=== PATIENT | female | born 1980 | race Asian ===

== ENCOUNTER → 2019-04-11 | Outpatient (CLI) | payer MEDICAID ==
[2019-04-11 11:06] LABS: Basophils # (auto) 0 uL; Eosinophils # (auto) 0 uL; Eosinophils % (auto) 0.4 % (0.0-7.0); Lymphocytes # (auto) 1.8 uL; Monocytes # (auto) 0.7 uL; Nucleated Red Blood Cells % 0.1 %; Red Cell Distribution Width 18.3 % (11.8-14.3)
[2019-04-11 11:08] LABS: Basophils % (auto) 0.4 % (0.0-2.0); Hematocrit 34.8 % (36.0-46.0); Lymphocytes % (auto) 24.4 % (10.0-50.0); Mean Corpuscular Hemoglobin 24.7 pg (28.0-32.0); Mean Corpuscular Hgb Conc. 31.5 g/dL (32.0-36.0); Mean Corpuscular Volume 78.5 fL (80.0-100.0); Monocytes % (auto) 9.8 % (0.0-12.0); Neutrophils # (auto) 4.7 uL; Platelet Count (auto) 341 10^3/uL (140-450); Red Blood Cells 4.43 10^6/uL (4.0-5.20); White Blood Cell 7.2 10^3/uL (4.4-10.8)
[2019-04-11 13:12] LABS: RUBELLA Negative
[2019-04-11 13:20] LABS: Alcohol, Urine < 3.0 mg/dL (0-5); Amphetamine Screen, Urine NEGATIVE (NEGATIVE); Barbiturate Scree,Urine NEGATIVE (NEGATIVE); Benzodiazephine Screen, Urine NEGATIVE (NEGATIVE); Cannabinoid Screen, Urine NEGATIVE (NEGATIVE); Cocaine Screen, Urine NEGATIVE (NEGATIVE); Opiate Scree,Urine NEGATIVE (NEGATIVE); Phencyclidine Screen, Urine NEGATIVE (NEGATIVE)
[2019-04-12 06:06] LABS: RPR Non Reactive (Non Reactive)
== END | disposition home or self-care (01) ==
LOC: LAB 10:21
PROVIDERS: ATTEND Obstetrics & Gynecology
DX: O99.810 Abnormal glucose complicating pregnancy (principal); Z3A.29 29 weeks gestation of pregnancy
CPT/HCPCS: 36415; 80307; 82951; 84112; 84144; 84702; 85025; 86592; 86703; 86762; 86850; 86900; 86901; 87086; 87340

== ENCOUNTER 2019-06-09 18:05 | Observation (INO) | payer MEDICAID ==
[~2019-06-09] VITALS: Ht 162.6 cm; Wt 78.9 kg
[2019-06-09] MEDS ORDERED: LABETALOL HCL 200 MG TAB PO ONE ×2 (19:15→21:30)
[2019-06-09] MEDS ORDERED: hydrALAZINE HCL 20 MG/ML VL IV ONE (19:15)
[2019-06-09] MEDS ORDERED: hydrALAZINE HCL 20 MG/ML VL IV PRN (19:45)
[2019-06-09 19:51] LABS: INR < 0.93 (0.9-1.15)
[2019-06-09 19:57] LABS: BUN/Creatinine Ratio 21.4; Bilirubin, Total 0.4 mg/dL (0.2-1.0); Total Protein 6.1 g/dL (6.4-8.2); Uric Acid 4.2 mg/dL (2.6-6.0)
[2019-06-09 20:11] LABS: Basophils # (auto) 0 uL; Basophils % (auto) 0.3 % (0.0-2.0); Eosinophils # (auto) 0 uL; Eosinophils % (auto) 0.3 % (0.0-7.0); Mean Corpuscular Volume 77.2 fL (80.0-100.0); Monocytes # (auto) 0.9 uL; Nucleated Red Blood Cells % 0.1 %
[2019-06-09 20:13] LABS: Hemoglobin 9.8 g/dL (12.2-16.2); Lymphocytes # (auto) 1.9 uL; Lymphocytes % (auto) 23.5 % (10.0-50.0); Mean Corpuscular Hemoglobin 24.4 pg (28.0-32.0); Mean Corpuscular Hgb Conc. 31.7 g/dL (32.0-36.0); Monocytes % (auto) 10.8 % (0.0-12.0); Neutrophils # (auto) 5.4 uL; Neutrophils % (auto) 65.1 % (37.0-80.0); Platelet Count (auto) 215 10^3/uL (140-450); Red Blood Cells 4.01 10^6/uL (4.0-5.20); Red Cell Distribution Width 17.8 % (11.8-14.3); White Blood Cell 8.2 10^3/uL (4.4-10.8)
[2019-06-09 22:24] LABS: Amphetamine Screen, Urine NEGATIVE (NEGATIVE); Barbiturate Scree,Urine NEGATIVE (NEGATIVE); Benzodiazephine Screen, Urine NEGATIVE (NEGATIVE); Cannabinoid Screen, Urine NEGATIVE (NEGATIVE); Cocaine Screen, Urine NEGATIVE (NEGATIVE); Opiate Scree,Urine NEGATIVE (NEGATIVE); Phencyclidine Screen, Urine NEGATIVE (NEGATIVE)
[2019-06-09] MEDS ORDERED: TERBUTALINE SULFATE 1 MG/ML 1ML VIAL SC SCH (22:30)
[2019-06-09] MEDS ORDERED: TERBUTALINE SULFATE 1 MG/ML 1ML VIAL SC ONE (22:33)
[2019-06-09 22:46] LABS: Urine Bacteria FEW /hpf (None Seen); Urine Blood Negative /uL (Negative); Urine Hyaline Cast FEW /lpf (0 - 2); Urine Mucus FEW (None Seen); Urine Specific Gravity 1.012 (1.001-1.035); Urine WBC 4 /hpf (0 - 5)
== END 2019-06-09 23:30 | disposition home or self-care (01) | DRG 566 ==
LOC: LDRP 18:05
PROVIDERS: ADMIT Specialist; ATTEND Specialist
DX: O13.3 Gestational [pregnancy-induced] hypertension without significant proteinuria, third trimester (principal); Z3A.36 36 weeks gestation of pregnancy
CPT/HCPCS: 36415; 59025; 76818; 80053; 80307; 81001; 84550; 85025; 85362; 85379; 85610; 85730; 96372; 96374; 96376; G0378; J0360; J3105; 96375

== ENCOUNTER 2019-06-11 09:40 | Observation (INO) | payer MEDICAID ==
[2019-06-11] MEDS ORDERED: PREN-153 OR (10:18)
[2019-06-11] MEDS ORDERED: LABE100T4 PO (10:18)
== END 2019-06-11 12:40 | disposition home or self-care (01) | DRG 566 ==
LOC: LDRP 09:40
PROVIDERS: ADMIT Obstetrics & Gynecology; ATTEND Obstetrics & Gynecology
DX: O13.3 Gestational [pregnancy-induced] hypertension without significant proteinuria, third trimester (principal); O09.523 Supervision of elderly multigravida, third trimester; Z3A.37 37 weeks gestation of pregnancy
CPT/HCPCS: 59025; 76818; 81002; A4618; G0378

== ENCOUNTER 2019-06-11 19:04 | Inpatient (IN) | payer MEDICAID ==
[~2019-06-11] VITALS: Ht 149.9 cm; Wt 81.2 kg
[~2019-06-11 19:04] MED LIST: LABE100T4 PO; PREN-153 OR
[2019-06-11] MEDS ORDERED: LACTATED RINGER'S 1,000 ML IV SCH (19:55)
[2019-06-11] MEDS ORDERED: BETAMETHASONE ACET (6MG/ML) 5ML VIAL IM ONE (20:00)
[2019-06-11] MEDS ORDERED: hydrALAZINE HCL 20 MG/ML VL ONE (20:03)
[2019-06-11] MEDS ORDERED: BETAMETHASONE ACET (6MG/ML) 5ML VIAL ONE (20:05)
[2019-06-11 20:29] LABS: Urine Bacteria FEW /hpf (None Seen); Urine Blood TRACE /uL (Negative); Urine Mucus FEW (None Seen); Urine Specific Gravity 1.029 (1.001-1.035); Urine WBC 26 /hpf (0 - 5)
[2019-06-11] MEDS: hydrALAZINE HCL 20 MG/ML VL IV PRN ×2 (20:32→21:30)
[2019-06-11 20:34] LABS: Basophils # (auto) 0 uL; Basophils % (auto) 0.4 % (0.0-2.0); Eosinophils # (auto) 0 uL; Eosinophils % (auto) 0.4 % (0.0-7.0); Hemoglobin 10.5 g/dL (12.2-16.2); Monocytes # (auto) 1.1 uL; Nucleated Red Blood Cells % 0.3 %; Platelet Count (auto) 170 10^3/uL (140-450)
[2019-06-11 20:36] LABS: Hematocrit 33.1 % (36.0-46.0); Lymphocytes % (auto) 19.9 % (10.0-50.0); Mean Corpuscular Hemoglobin 24.6 pg (28.0-32.0); Mean Corpuscular Hgb Conc. 31.8 g/dL (32.0-36.0); Mean Corpuscular Volume 77.5 fL (80.0-100.0); Monocytes % (auto) 10.6 % (0.0-12.0); Neutrophils % (auto) 68.7 % (37.0-80.0); Red Blood Cells 4.27 10^6/uL (4.0-5.20); White Blood Cell 10.2 10^3/uL (4.4-10.8)
[2019-06-11 20:46] LABS: INR < 0.93 (0.9-1.15); Partial Thromboplastin Time 26.1 sec (23.64-32.05)
[2019-06-11 20:59] LABS: Alcohol, Urine < 3.0 mg/dL (0-5); Amphetamine Screen, Urine NEGATIVE (NEGATIVE); Barbiturate Scree,Urine NEGATIVE (NEGATIVE); Benzodiazephine Screen, Urine NEGATIVE (NEGATIVE); Cannabinoid Screen, Urine NEGATIVE (NEGATIVE); Cocaine Screen, Urine NEGATIVE (NEGATIVE); Opiate Scree,Urine NEGATIVE (NEGATIVE); Phencyclidine Screen, Urine NEGATIVE (NEGATIVE)
[2019-06-11 21:00] LABS: Albumin 2.1 g/dL (3.4-5.0); Calcium 7.9 mg/dL (8.5-10.1); Potassium 4.3 mmol/L (3.5-5.1)
[2019-06-11] MEDS ORDERED: LABETALOL HCL 200 MG TAB PO ONE (21:00)
[2019-06-11 21:02] LABS: BUN/Creatinine Ratio 17.3; Bilirubin, Total 0.4 mg/dL (0.2-1.0); Total Protein 6.7 g/dL (6.4-8.2)
[2019-06-12] VITALS (11 sets, daily range): BP systolic 117–134; BP diastolic 49–76
[2019-06-12] MEDS ORDERED: OXYTOCIN 10 UNIT/ML 10ML VIAL IV ONE (00:51)
[2019-06-12] MEDS ORDERED: fentaNYL CITRATE 100 MCG/2 ML VL ONE (00:51)
[2019-06-12] MEDS ORDERED: ceFAZolin 1GM VL IV ONE (00:51)
[2019-06-12] MEDS ORDERED: SUCCINYLCHOLINE CHLORIDE 20 MG/ML 10ML VIAL IV ONE (00:58)
[2019-06-12] MEDS: LACT. RINGERS/OXYTOCIN 20UNITS 1,000 ML IV SCH ×2 (01:05→07:45)
[2019-06-12] MEDS ORDERED: ONDANSETRON HCL 4 MG/2 ML VIAL IV PRN ×2 (01:15→03:00)
[2019-06-12] MEDS ORDERED: ceFAZolin 1GM/50ML 50 ML IV SCH (02:00)
--- NOTE | 2019-06-12 02:30 | NUR ---
Pain medication order Dr. Guaman on unit. Order received for Ofirmev 1000mg IV BID prn moderate pain. Pt is not to receive Toradol per Dr. Guaman.
[2019-06-12] MEDS ORDERED: ePHEDrine SULFATE 50 MG/ML AMP IV PRN (03:00)
[2019-06-12] MEDS ORDERED: hydrALAZINE HCL 20 MG/ML VL IV PRN (03:00)
[2019-06-12] MEDS ORDERED: HYDROmorphone HCL 2 MG/ML VL IV PRN ×2 (03:00)
[2019-06-12] MEDS ORDERED: OFIRMEV IV PRN (03:15)
--- NOTE | 2019-06-12 03:19 | NUR ---
0240 Pt. arrived from PACU via hospital bed.
--- NOTE | 2019-06-12 03:22 | NUR ---
0300 VSS, fundus firm, small lochia, pt. alert and oriented. Oriented to room; call chawla, plan of care discussed with pt., pt. verbalized understanding per Maksim, hospital secretary as warm in.
[2019-06-12] MEDS: MORPHINE SULFATE 4 MG/ML SYR/VIAL IV PRN ×4 (04:11→20:45)
[2019-06-12] MEDS ORDERED: ACETAMINOPHEN IV 1000 MG/100ML (10MG/ML) IV ONE ×2 (05:15→12:00)
[2019-06-12] MEDS: ceFAZolin 1GM/50ML 50 ML IV SCH ×2 (09:38→17:31)
--- NOTE | 2019-06-12 10:11 | NUR ---
DR. RUIZ CALLED AND UPDATE GIVEN . NEW ORDERS RECEIVED PATIENT CAN GET UP AND WALK AFTER 7 PM .
[2019-06-12 14:05] LABS: Basophils # (auto) 0 uL; Eosinophils # (auto) 0 uL
[2019-06-12 14:07] LABS: Basophils % (auto) 0.2 % (0.0-2.0); Hematocrit 29.2 % (36.0-46.0); Lymphocytes # (auto) 1.3 uL; Lymphocytes % (auto) 11.3 % (10.0-50.0); Mean Corpuscular Hemoglobin 24.3 pg (28.0-32.0); Mean Corpuscular Volume 78.3 fL (80.0-100.0); Monocytes # (auto) 0.7 uL; Monocytes % (auto) 5.6 % (0.0-12.0); Neutrophils # (auto) 9.7 uL; Neutrophils % (auto) 82.9 % (37.0-80.0); Nucleated Red Blood Cells % 0.2 %; Platelet Count (auto) 160 10^3/uL (140-450); Red Blood Cells 3.72 10^6/uL (4.0-5.20); Red Cell Distribution Width 17.7 % (11.8-14.3); White Blood Cell 11.7 10^3/uL (4.4-10.8)
[2019-06-12] MEDS ORDERED: LACTATED RINGER'S 1,000 ML IV ONE (17:30)
[2019-06-12] MEDS ORDERED: BISACODYL 10 MG RECT SUPP PR PRN (22:30)
[2019-06-13] MEDS: IBUPROFEN 800 MG TAB PO PRN ×2 (00:12→22:08)
--- NOTE | 2019-06-13 01:00 | NUR ---
Horn catheter dc'd Order to discontinue horn catheter. Horn dc'd with clean technique following deflation of balloon. Patient tolerated well with no complaints of pain. Continue care.
--- NOTE | 2019-06-13 01:45 | NUR ---
Ambulation: Berta care provided, and fresh gown. Patient OOB with standby assistance by RN. Pt ambulated in hallway 200 fett , with complaints of pain. Pt transferred to room 3 from room 8A related to crying baby in bed next door and her has been transferred to [facility] for continued care.
[2019-06-13] MEDS: HYDROcodone-ACET 5/325MG TAB PO PRN ×4 (01:51→19:23)
[2019-06-13] MEDS: ceFAZolin 1GM/50ML 50 ML IV SCH (01:52)
--- NOTE | 2019-06-13 02:00 | NUR ---
IV removal Righ hand, IV DC'd with sterile technique, catheter fully intact. Pressure dressing applied to site. Patient tolerated procedure well.
[2019-06-13 03:15] VITALS: BP 127/63
[2019-06-13] MEDS: SIMETHICONE 80 MG CHEWABLE TABLET PO SCH ×4 (05:43→22:07)
[2019-06-13 06:31] LABS: Basophils # (auto) 0 uL; Basophils % (auto) 0.2 % (0.0-2.0); Eosinophils # (auto) 0 uL; Hematocrit 26.3 % (36.0-46.0); Hemoglobin 8.3 g/dL (12.2-16.2); Lymphocytes # (auto) 1.4 uL; Lymphocytes % (auto) 11.3 % (10.0-50.0); Mean Corpuscular Hemoglobin 24.8 pg (28.0-32.0); Mean Corpuscular Hgb Conc. 31.5 g/dL (32.0-36.0); Mean Corpuscular Volume 78.6 fL (80.0-100.0); Neutrophils # (auto) 9.7 uL; Neutrophils % (auto) 80.5 % (37.0-80.0); Nucleated Red Blood Cells % 0.1 %; Platelet Count (auto) 179 10^3/uL (140-450); Red Blood Cells 3.35 10^6/uL (4.0-5.20)
[2019-06-13 07:00] VITALS: BP 133/65
[2019-06-13] MEDS: DOCUSATE SOD 100 MG CAP PO SCH ×2 (10:00→22:07)
[2019-06-13 11:10] VITALS: BP 136/63
[2019-06-13 15:00] VITALS: BP 143/67
--- NOTE | 2019-06-13 18:54 | NUR ---
With assistance of oceanographic meteorologist [id number] Rosy, Reviewed plan of care and goals for this shift. Patient verbalized understanding and agreed to cares by both this RN luba uStton Cubing Machine Tender Student RN. Assessment initiated . See flowsheet for complete data.
[2019-06-13 19:00] VITALS: BP 120/57
--- NOTE | 2019-06-13 20:00 | NUR ---
Pt states pain 2/10, out of bed and ambulating throughout unit, approx 600 feet independent, all belongings moved to room 8 and pt transferred. tolerated walking well, per patient
--- NOTE | 2019-06-13 21:00 | NUR ---
All supplies for shower provided. Pt independent, red call light cord within reach.
[2019-06-13 23:09] VITALS: BP 136/76
--- NOTE | 2019-06-13 23:30 | NUR ---
Out of bed ambulating throughout unit, 600 feet, tolerated well.
[2019-06-14] MEDS: HYDROcodone-ACET 5/325MG TAB PO PRN (03:08)
[2019-06-14 03:16] VITALS: BP 130/77
--- NOTE | 2019-06-14 05:35 | NUR ---
CNM V. at bedside, removing xiomy. Pt tolerated well. Pt denies pain.
[2019-06-14] MEDS: SIMETHICONE 80 MG CHEWABLE TABLET PO SCH (05:55)
[2019-06-14 07:00] VITALS: BP 140/70
[2019-06-14 07:11] LABS: RPR Non Reactive (Non Reactive)
[2019-06-14] MEDS ORDERED: TETANUS-DIPTH-ACEL PERTUSSIS 0.5ML SYRG IM ONE (09:15)
--- NOTE | 2019-06-14 09:15 | NUR ---
Discharge: Discharge instructions given as ordered. Pt encouraged to follow up with RANGE TECHNICIAN as instructed. All questions and concerns addressed. Patient verbalized understanding. Medication reconciliation completed and copy given to patient. All required/requested vaccines given and copies of vaccinations given to patient. Patient encouraged to prepare to depart unit.
== END 2019-06-14 09:33 | disposition home or self-care (01) | DRG 540 ==
LOC: LDRP 19:04 → OBSVTOIN 06-12 00:05 → NUR 06-12 07:05 → LDRP 06-12 07:07
PROVIDERS: ADMIT Obstetrics & Gynecology; ATTEND Obstetrics & Gynecology
PROC: 10D00Z1 Extraction of Products of Conception, Low, Open Approach (ICD-10-PCS; principal; 2019-06-12 01:05)
DX: O36.5930 Maternal care for other known or suspected poor fetal growth, third trimester, not applicable or unspecified (principal); E66.9 Obesity, unspecified; O99.214 Obesity complicating childbirth; O34.211 Maternal care for low transverse scar from previous cesarean delivery; O76 Abnormality in fetal heart rate and rhythm complicating labor and delivery; Z37.0 Single live birth; Z3A.37 37 weeks gestation of pregnancy
CPT/HCPCS: 36415; 59025; 76801; 76818; 80053; 80307; 81001; 81002; 84112; 84550; 85025; 85610; 85730; 86592; 86850; 86900; 86901; 90715; 96365; 96366; 96372; 96374; 96375; A4618; G0378; J0131; J0330; J0690; J2590

== ENCOUNTER 2019-07-30 10:08 | Inpatient (IN) | payer MEDICAID ==
[~2019-07-30] VITALS: Ht 149.9 cm; Wt 68.0 kg
[2019-07-30 11:27] LABS: Eosinophils # (auto) 0.2 uL; Eosinophils % (auto) 2.6 % (0.0-7.0); Hemoglobin 11.7 g/dL (12.2-16.2); Lymphocytes # (auto) 0.9 uL; Lymphocytes % (auto) 11.5 % (10.0-50.0); Neutrophils # (auto) 6.4 uL; Red Blood Cells 4.49 10^6/uL (4.0-5.20); White Blood Cell 8.2 10^3/uL (4.4-10.8)
[2019-07-30 11:29] LABS: Basophils # (auto) 0 uL; Basophils % (auto) 0.6 % (0.0-2.0); Hematocrit 35.9 % (36.0-46.0); Mean Corpuscular Hemoglobin 26.2 pg (28.0-32.0); Mean Corpuscular Hgb Conc. 32.7 g/dL (32.0-36.0); Monocytes # (auto) 0.6 uL; Monocytes % (auto) 7.1 % (0.0-12.0); Neutrophils % (auto) 78.2 % (37.0-80.0); Platelet Count (auto) 517 10^3/uL (140-450)
[2019-07-30 11:33] LABS: Red Cell Distribution Width 23.2 % (11.8-14.3)
[2019-07-30 11:51] LABS: Albumin 3.5 g/dL (3.4-5.0); Anion Gap 6 (5-15); Blood Urea Nitrogen 10 mg/dL (7-18); Calcium 8.2 mg/dL (8.5-10.1); Carbon Dioxide 25 mmol/L (21-32); Chloride 108 mmol/L (98-107); Glucose 94 mg/dL (74-106); Potassium 3.6 mmol/L (3.5-5.1); Sodium 139 mmol/L (136-145)
[2019-07-30 11:58] LABS: Alanine Aminotransferase 149 U/L (13-56); Alkaline Phosphatase 129 U/L (45-117); Aspartate Aminotransferase 97 U/L (15-37); BUN/Creatinine Ratio 17.2; Bilirubin, Total 0.2 mg/dL (0.2-1.0); GFR African American 149 mL/min; GFR Non-African American 123 mL/min; Total Protein 7.8 g/dL (6.4-8.2)
[2019-07-30 12:20] LABS: INR 2.86 (0.9-1.15); Partial Thromboplastin Time 35.3 sec (23.64-32.05)
[2019-07-30] MEDS ORDERED: diphenhdrAMINE HCL 50 MG/1 ML VL IV ONE (12:30)
[2019-07-30] MEDS ORDERED: methylPREDNISolone SOD SUCC 125 MG/2 ML VL IV ONE (13:30)
[2019-07-30] MEDS ORDERED: FAMOTIDINE (10MG/ML) 2ML VL IV ONE (13:30)
[2019-07-30] MEDS ORDERED: ALBUTEROL SULF 2.5 MG/0.5ML(0.5%) NEB SOLN NEB PRN (13:45)
[2019-07-30] MEDS ORDERED: PROMETHAZINE HCL 25 MG/ML 1ML IV PRN (13:45)
[2019-07-30] MEDS ORDERED: MORPHINE SULF INJ 2 MG/ML SYRINGE 1ML IV PRN (13:45)
[2019-07-30] MEDS ORDERED: ACETAMINOPHEN 500 MG TAB PO PRN (13:45)
[2019-07-30] MEDS ORDERED: LABETALOL HCL 5 MG/ML ML 20ML VIAL IV PRN (13:45)
[2019-07-30] MEDS ORDERED: LACTULOSE 20Gm/30ML SOLN PO PRN (13:45)
[2019-07-30] MEDS ORDERED: NITROGLYCERIN 0.4 MG SL TAB SL PRN (13:45)
[2019-07-30] MEDS ORDERED: traMADol HCL 50 MG TAB PO PRN (13:45)
[2019-07-30 14:18] VITALS: BP 120/79
[2019-07-30] MEDS ORDERED: methylPREDNISolone SOD SUCC 40 MG/ML VL IV SCH (14:45)
--- NOTE | 2019-07-30 15:00 | NUR ---
Telemetry admit from ER KATYA CISNEROSHENRIK admitted to Telemetry unit after SBAR received. Patient oriented to Sigrid Kaplan, primary RN, unit, room, bed, and unit policies regarding patient care and visiting hours. Patient now on continuous telemetry monitoring, tele box # 32 and telemetry reading on arrival to unit is SR 91. Patient placed on bedside oxygen, weighed by bedscale and encouraged to call if they need something. All questions and concerns addressed, patient verbalized understanding. Note:
[2019-07-30 15:16] LABS: Urine Bacteria NONE SEEN /hpf (None Seen); Urine Blood 3+ /uL (Negative); Urine WBC 89 /hpf (0 - 5)
[2019-07-30 15:35] LABS: Alcohol, Urine < 3.0 mg/dL (0-5); Amphetamine Screen, Urine NEGATIVE (NEGATIVE); Barbiturate Scree,Urine NEGATIVE (NEGATIVE); Benzodiazephine Screen, Urine NEGATIVE (NEGATIVE); Cannabinoid Screen, Urine NEGATIVE (NEGATIVE); Cocaine Screen, Urine NEGATIVE (NEGATIVE); Opiate Scree,Urine NEGATIVE (NEGATIVE); Phencyclidine Screen, Urine NEGATIVE (NEGATIVE)
[2019-07-30] MEDS ORDERED: PANT40T PO (15:44)
[2019-07-30] MEDS ORDERED: WARF4TAB33 PO (15:44)
[2019-07-30] MEDS ORDERED: DIC10C PO (15:51)
[2019-07-30] MEDS ORDERED: AML5T PO (15:51)
[2019-07-30] MEDS ORDERED: PHE100C PO (15:51)
[2019-07-30] MEDS ORDERED: KEP500T PO (15:51)
[2019-07-30] MEDS ORDERED: PRED-188 PO (15:51)
[2019-07-30] MEDS ORDERED: cefTRIAXone 1GM/50ML D5W 50 ML IV ONE (16:00)
[2019-07-30] MEDS: SODIUM CHLORIDE 0.9% 1,000 ML IV SCH (16:00)
[2019-07-30] MEDS ORDERED: POM OP (16:17)
[2019-07-30 16:24] VITALS: BP 112/82
--- NOTE | 2019-07-30 16:30 | NUR ---
MED REC UPDATED PT'S SISTER AT BEDSIDE WITH BOTTLES OF HOME MEDICATIONS.
--- NOTE | 2019-07-30 18:34 | NUR ---
PER DR MONTAGUE, FAMILY WILL BRING PT'S PAPERWORK FROM PREVIOUS HOSP[facility] ADMISSION [facility] TO CONFIRM THE NAME THAT WAS USED IN THAT ADMISSION IN ORDER TO FIND HER PREVIOUS FILES AND TO BE ABLE TO REQUEST THE ONES FROM [facility].
--- NOTE | 2019-07-30 19:07 | NUR ---
RT NOTE PT WAS SEEN BY RT FOR PRN HHN ASSESSMENT. PT IS SITTING IN BED, EATING EVENING MEAL AND TALKING ON THE PHONE. NO SOB OR DISTRESS NOTED. HR 89, RR 16, BS CTA, POX 97% ON ROOM AIR. PT AWARE TO CALL IF PRN HHN TX NEEDED AT ANY TIME. NO PRN TX INDICATED NOR GIVEN AT THIS TIME. CONT ORDERED Addendum: 07/30/19 at 1954 by Blaire Honeycutt RT Amended: Links added.
[2019-07-30 22:00] VITALS: BP 101/68
[2019-07-30] MEDS ORDERED: ATORVASTATIN 20 MG TAB PO SCH (22:00)
[2019-07-30] MEDS ORDERED: LEVETIRACETAM 500 MG TAB PO SCH (22:00)
[2019-07-30] MEDS ORDERED: PHENYTOIN SODIUM 100 MG CAP PO SCH (22:00)
[2019-07-30] MEDS: LEVETIRACETAM 500 MG TAB PO SCH (23:28)
[2019-07-30] MEDS: methylPREDNISolone SOD SUCC 40 MG/ML VL IV SCH (23:28)
[2019-07-30] MEDS: LABETALOL HCL 200 MG TAB PO SCH (23:30)
[2019-07-31 05:00] VITALS: BP 107/68
[2019-07-31] MEDS: SODIUM CHLORIDE 0.9% 1,000 ML IV SCH (06:12)
[2019-07-31 07:10] LABS: INR 3.76 (0.9-1.15)
[2019-07-31 07:15] LABS: Cholesterol 203 mg/dL (< 200); HDL Cholesterol 50 mg/dL (40-59); LDL Cholesterol 140 mg/dL (< 100); Triglycerides 122 mg/dL (< 150)
--- NOTE | 2019-07-31 07:30 | NUR ---
Opening shift note. Assumed care of patient from mine shifter nurse. patient is alert and oriented x4, no signs of distress noted. Patient is updated on the plan of care and verbalized understanding. bed in the lowest position, side rails up x2 and call light is in reach. Encouraged patient to call for assistance.
[2019-07-31] MEDS: cefTRIAXone 1GM/50ML D5W 50 ML IV SCH (08:42)
[2019-07-31 09:00] VITALS: BP 105/69
[2019-07-31] MEDS: PANTOPRAZOLE 40 MG TAB PO SCH (09:53)
[2019-07-31] MEDS: LEVETIRACETAM 500 MG TAB PO SCH ×2 (09:54→22:23)
[2019-07-31] MEDS: LABETALOL HCL 200 MG TAB PO SCH ×2 (09:55→22:23)
[2019-07-31] MEDS: methylPREDNISolone SOD SUCC 40 MG/ML VL IV SCH ×2 (09:55→23:51)
[2019-07-31] MEDS ORDERED: ASPirin 81 mg TAB PO SCH (10:00)
[2019-07-31] MEDS ORDERED: amLODIPine BESYLATE 5 MG TAB PO SCH (10:00)
--- NOTE | 2019-07-31 12:02 | NUR ---
RT note: No signs of SOB/resp.distress noted at this time. B/S clear bilateral. Sats on room hyy=168, HR=79, RR=16. Instructed PT if SOB occurs to notify RN. PT understood instructions.
[2019-07-31 13:00] VITALS: BP 103/76
[2019-07-31] MEDS ORDERED: diphenhdrAMINE HCL 50 MG/1 ML VL IV PRN (13:45)
[2019-07-31] MEDS: ERYTHROMY OPTH OINT 5mg/gm 1gm OP SCH ×2 (16:02→21:45)
[2019-07-31 17:00] VITALS: BP 113/73
[2019-07-31] MEDS ORDERED: KETOROLAC TROMETH 30 MG/ML 1ML VIAL IV ONE (17:45)
--- NOTE | 2019-07-31 19:20 | NUR ---
Respiratory note: PT ASSESSED FOR PRN MED NEB TX. HR 81, RR 16, SPO2 98% ON R/A. NO SIGNS OF ANY RESPIRATORY DISTRESS NOTED. ADVISED PT TO CALL IF TX IS NEEDED. RT NAME AND PAGER NUMBER WRITTEN ON BOARD.
--- NOTE | 2019-07-31 19:25 | NUR ---
Closing shift notes Care endorsed to manufacturing shift supervisor nurse
--- NOTE | 2019-07-31 19:50 | NUR ---
Opening Shift Note Assumed care of patient, awake, AAOX4. Tamazight speaking only. No S/S of distress/SOB or pain. On room air and ambulatory. Seizure precautions in place. Bed in lowest locked position, side rails up x2, call light within reach. Instructed on POC and to call for assist PRN, will continue to monitor for changes Q1hr and PRN.
[2019-07-31 22:00] VITALS: BP 106/67
[2019-07-31] MEDS: PHENYTOIN SODIUM 100 MG CAP PO SCH (22:22)
--- NOTE | 2019-07-31 23:30 | NUR ---
IV removal IV infiltrated, redness and swelling at site. DC'd with clean sterile technique, catheter fully intact. Pressure dressing applied to site. Patient tolerated well.
--- NOTE | 2019-07-31 23:40 | NUR ---
IV insertion IV access obtained, via clean sterile technique by inserting 22 gauge catheter at right wrist after 2 attempts. IV secured properly. No trauma to site. Patient tolerated well.
[2019-08-01 05:00] VITALS: BP 101/65
[2019-08-01] MEDS: ERYTHROMY OPTH OINT 5mg/gm 1gm OP SCH ×2 (06:11→14:26)
[2019-08-01 06:43] LABS: Basophils # (auto) 0 uL; Eosinophils # (auto) 0 uL; Hematocrit 32.7 % (36.0-46.0); Hemoglobin 10.9 g/dL (12.2-16.2); Monocytes # (auto) 0.4 uL
[2019-08-01 06:48] LABS: Basophils % (auto) 0.8 % (0.0-2.0); Eosinophils % (auto) 0.8 % (0.0-7.0); Lymphocytes # (auto) 1.1 uL; Lymphocytes % (auto) 20.6 % (10.0-50.0); Mean Corpuscular Hemoglobin 26.4 pg (28.0-32.0); Mean Corpuscular Hgb Conc. 33.3 g/dL (32.0-36.0); Mean Corpuscular Volume 79.2 fL (80.0-100.0); Monocytes % (auto) 7.7 % (0.0-12.0); Neutrophils # (auto) 3.8 uL; Neutrophils % (auto) 70.1 % (37.0-80.0); Platelet Count (auto) 454 10^3/uL (140-450); Red Blood Cells 4.13 10^6/uL (4.0-5.20); White Blood Cell 5.4 10^3/uL (4.4-10.8)
[2019-08-01 07:00] LABS: Albumin 3.3 g/dL (3.4-5.0); Calcium 8.3 mg/dL (8.5-10.1); Potassium 4.2 mmol/L (3.5-5.1)
--- NOTE | 2019-08-01 07:00 | NUR ---
opening note PATIENT IN BED, ALERT AND ORIENTED, ABLE TO COMMUNICATE UPPER SORBIAN SPEAKING. UNLABORED EVEN RESPIRATIONS, NO SIGNS OF SOB. DENIES PAIN. INSTRUCTIONS GIVEN IN POC, PATIENT VERBALIZED UNDERSTANDING. BED IN LOWEST POSITION FOR SAFETY. CALL LIGHT WITH IN REACH. PT INSTRUCTED TO CALL FOR ASSISTANCE NEEDED. WILL CONT TO MONITOR
[2019-08-01 07:02] LABS: INR 2.28 (0.9-1.15)
[2019-08-01 07:03] LABS: BUN/Creatinine Ratio 23.3; Bilirubin, Total 0.2 mg/dL (0.2-1.0); Total Protein 7.4 g/dL (6.4-8.2)
[2019-08-01 09:00] VITALS: BP 101/63
[2019-08-01] MEDS: cefTRIAXone 1GM/50ML D5W 50 ML IV SCH (09:30)
[2019-08-01] MEDS: methylPREDNISolone SOD SUCC 40 MG/ML VL IV SCH (09:33)
[2019-08-01] MEDS: PHENYTOIN SODIUM 100 MG CAP PO SCH (09:34)
[2019-08-01] MEDS: PANTOPRAZOLE 40 MG TAB PO SCH (09:34)
[2019-08-01] MEDS: LEVETIRACETAM 500 MG TAB PO SCH (09:35)
[2019-08-01] MEDS: LABETALOL HCL 200 MG TAB PO SCH (09:38)
[2019-08-01] MEDS ORDERED: amLODIPine BESYLATE 5 MG TAB PO SCH (10:00)
--- NOTE | 2019-08-01 10:00 | NUR ---
PATIENT COMPLAINED OF CONSTIPATION. LACTULOSE GIVEN. INSTRUCTED PATIENT TO CALL FOR ASSISTANCE NEEDED.
--- NOTE | 2019-08-01 11:04 | NUR ---
Respiratory note: PT ASSESSED FOR PRN MED NEB TX. PT AWAKE, ALERT AND RESPONSIVE. HR 72, RR 18, SPO2 93% ON R/A. NO SIGNS OF ANY RESPIRATORY DISTRESS NOTED. ADVISED PT TO CALL IF TX IS NEEDED.
--- NOTE | 2019-08-01 12:48 | NUR ---
NEW ID BAND PLACED ON LEFT WRIST.
[2019-08-01 13:00] VITALS: BP 118/82
--- NOTE | 2019-08-01 13:23 | NUR ---
PATIENT COMFORTABLE. JEFF DISCOMFORT. NEW ORDERS WILL BE CARRIED OUT.
[2019-08-01] MEDS ORDERED: CEPH-37 PO (13:32)
[2019-08-01] MEDS ORDERED: ATOR10TA52 PO (14:59)
[2019-08-01 17:00] VITALS: BP 113/75
[2019-08-01] MEDS ORDERED: WARFARIN SODIUM 2 MG TAB PO ONE (17:00)
--- NOTE | 2019-08-01 17:41 | NUR ---
DISCHARGE DISCHARGE INFORMATION GIVEN TO PATIENT. PT VERBALIZED UNDERSTANDING OF FOLLOW UP WITH NEURO, COUMADIN CLINIC, URGENT CARE AND GERARD RN IF NEEDED TO ASSIGN A DR. ALL INFORMATION PRINTED IN OCCITAN. DOSE OF COUMADIN GIVEN. WILL CALL [employer] TO TRANSPORT PT HOME. PT DENIES DISCOMFORT OR PAIN. WALKING WITHOUT DIFFICULTY. TELE BOX SENT TO ICU, IV REMOVED. NO TRAUMA OR BLEEDING ON THE AREA.
--- NOTE | 2019-08-01 18:13 | NUR ---
patient was accompany by RN to get courtesy taxi. patient left walking
== END 2019-08-01 18:15 | disposition home or self-care (01) | DRG 385 ==
LOC: ER 10:19 → TELE 10:20 → TELE-CENTR 15:06
PROVIDERS: ADMIT Internal Medicine; ATTEND Internal Medicine
DX: L50.9 Urticaria, unspecified (principal); D68.59 Other primary thrombophilia; R56.9 Unspecified convulsions; D64.9 Anemia, unspecified; N39.0 Urinary tract infection, site not specified; E66.3 Overweight; E78.5 Hyperlipidemia, unspecified; D47.3 Essential (hemorrhagic) thrombocythemia; I10 Essential (primary) hypertension; K59.00 Constipation, unspecified; G47.10 Hypersomnia, unspecified; Z86.73 Personal history of transient ischemic attack (TIA), and cerebral infarction without residual deficits; Z83.3 Family history of diabetes mellitus; Z82.3 Family history of stroke; Z79.899 Other long term (current) drug therapy
CPT/HCPCS: 36415; 70450; 70551; 71046; 76705; 80053; 80061; 80185; 80307; 81001; 81241; 82550; 84484; 84702; 85025; 85302; 85305; 85306; 85610; 85613; 85652; 85670; 85705; 85730; 85732; 87081; 87086; 93005; 93306; 93886; 96374; 96375; G0378; J0696; J1885; J3490

== ENCOUNTER 2019-09-25 12:46 | Emergency (ER) | payer MEDICAID, OTHER ==
[~2019-09-25] VITALS: Ht 154.9 cm; Wt 81.6 kg
[~2019-09-25 12:46] MED LIST changes: +AML5T PO; +ATOR10TA52 PO; +CEPH-37 PO; +DIC10C PO; +KEP500T PO; +PANT40T PO; +PHE100C PO; +POM OP; +PRED-188 PO; +WARF4TAB33 PO
[2019-09-25 12:53] VITALS: BP 155/73
== END 2019-09-25 14:11 | disposition left against medical advice (07) ==
LOC: EDBD 12:46 → EDUNIT# 12:51 → EDBD 12:51 → ER 12:51
DX: R20.0 Anesthesia of skin (principal); R53.1 Weakness; Z53.21 Procedure and treatment not carried out due to patient leaving prior to being seen by health care provider
CPT/HCPCS: 70450